=== PATIENT | male | born 1980 | race Caucasian/White ===

== ENCOUNTER 2018-10-28 06:17 | Emergency (ER) | payer OTHER, SELFPAY ==
[2018-10-28] VITALS (16 sets, daily range): BP systolic 113–154; BP diastolic 77–124; PULSE 74–134; RESP 12–28; TEMP 36.8; O2SAT 96–100; BMI 29.0
--- NOTE | 2018-10-28 06:21 | EKG12_ITS ---
Test Reason : PALPITATIONS Blood Pressure : / mmHG Vent. Rate : 144 BPM Atrial Rate : 074 BPM P-R Int : 000 ms QRS Dur : 086 ms QT Int : 308 ms P-R-T Axes : 000 024 062 degrees QTc Int : 476 ms Atrial fibrillation with rapid ventricular response Nonspecific ST and T wave abnormality Abnormal ECG Confirmed by VENUS CONN, EDISON ([id number]), web editor ARANZA POLLARD ([id number] on 10/29/2018 2:36:31 PM Referred By: JOHAN Confirmed By:EDISON DONOVAN MD
--- NOTE | 2018-10-28 06:25 | EKG12_ITS ---
Test Reason : REPEAT EKG Blood Pressure : / mmHG Vent. Rate : 094 BPM Atrial Rate : 102 BPM P-R Int : 000 ms QRS Dur : 092 ms QT Int : 342 ms P-R-T Axes : 000 012 023 degrees QTc Int : 427 ms Atrial fibrillation Abnormal ECG Confirmed by EDISON DONOVAN MD ([id number]), brands editor ARANZA POLLARD ([id number] on 10/29/2018 2:18:22 PM Referred By: SAMANTHA Confirmed By:EDISON DONOVAN MD
--- NOTE | 2018-10-28 06:33 | ED.DCSUM_ITS ---
- ER Visit Summary Date of Service: 10/28/18 Chief Complaint: Heart racing History of Present Illness: The patient is a 38 M presents to the emergency department heart racing. Patient states that he went to bed in his normal state of health. He states that he woke suddenly early this morning and felt like his heart was racing. He describes some chest tightness and dyspnea. He states that he put on his watch that is able to calculate his heart rate. He states was running anywhere from 100 to 175. He is never had anything like this before. The patient does have history of Crohn's disease but is not on any medications. He denies any history of coronary vascular disease. He does not smoke. He denies any exertional dyspnea. He denies any recent travel. He has no history of pulmonary embolus. He states that he has had a heart heart rate in the past, but is never had to seek care for it. Physical Examination: [Vital signs reviewed General: Well-nourished, well-developed Head: Normocephalic, atraumatic Eyes: Pupils equal and reactive, extraocular muscles intact Neck, supple, no lymphadenopathy Heart: Irregular tachycardic rate and rhythm Respiratory: No distress, clear bilaterally Abdomen: Soft, nontender, nondistended, no peritoneal signs Back: Nontender Extremities: Nontender, no edema, no cords Skin: Normal color no rash Neuro: Alert and oriented, no focal or lateralizing deficits Test Results: [] Emergency Department Course and Treatment: EKG was obtained on patient arrival. It does demonstrate narrow complex irregular tachycardia that I suspect is either A. fib with RVR versus atrial flutter with intermittent conduction. The patient would have areas on the monitor where he would slow and have a sinus rhythm and then speed back up. IV was established. The patient was given 20 mg of diltiazem. His heart rate did decrease into the upper 100s. He did have symptomatic improvement. Screening labs were obtained. Treatment Plan: [] Disposition: [] Impression: [] This note was generated with [email or web address] dictation software. It may contain incorrect words, spelling, and punctuation that were not noted in review of the chart prior to signing <Dominic Gomez - Last Filed: 10/28/18 06:50> - ER Visit Summary Date of Service: 10/28/18 Chief Complaint: [] Please see the note from Dr. Hutchison above, the patient remained stable here in the department his labs and x-rays were unremarkable we did speak with Dr. Birmingham cardiology who came down to see the patient, Dr. Birmingham and the patient interrogated the patient's apple watch data and determined that he was in a normal heart rate for the whole week and this likely began this morning based on that data patient confirms that, Dr. Birmingham recommend the patient given Lovenox additional dose of Cardizem and then after an hour or 2 if he had not converted to go ahead and proceed with direct-current cardioversion synchronized he did not convert he remained stable awake we discussed all the above with him risk benefits with the as well, he understood all the above and agreed and consented, he was then underwent conscious sedation protocol hyperoxygenation maintain normal vital signs and pulse ox, treated with incremental doses of Versed 2 mg propofol 60 mg, and then cardioverted with 200 synchronized joules without difficulty into a sinus rhythm with Dr. birmingham ,, post the procedure he remained in a sinus rhythm he remained awake and alert with no complaints his repeat EKG showed a sinus rhythm he was observed remained awake alert had no complaints or concerns remained in a sinus rhythm at this time will follow up with Dr. Birmingham he will be started on Eliquis 5 mg twice daily and return for change in symptoms History of Present Illness: [] Physical Examination: [] Test Results: [] Emergency Department Course and Treatment: [] Treatment Plan: [] Disposition: [] Home stable Impression: [] Sudden onset paroxysmal A. fib, conscious sedation, synchronized cardioversion to treat A. fib This note was generated with [email or web address] dictation software. It may contain incorrect words, spelling, and punctuation that were not noted in review of the chart prior to signing <Judy Norris - Last Filed: 10/28/18 10:54> ED Disposition <Dominic Gomez - Last Filed: 10/28/18 06:50> <Judy Norris - Last Filed: 10/28/18 10:54> - Plan for ED Patient: Referrals: Keri Peng MD [STAFF PHYSICIAN] -
[2018-10-28] MEDS: dilTIAZem 25 MG/5 ML Vial 20 MG IV BOLUS ×2 (06:36→08:15)
[2018-10-28 06:43] LABS: Absolute Lymphocyte Count 2.01 X10^3/ul (0.83-4.51); Absolute Neutrophil Count 3.9 X10^3/uL (2.0-7.7); Basophil# 0.04 X10^3/uL; Basophil% 0.5 % (0-1); Eosinophil# 0.33 X10^3/uL; Eosinophils% 4.2 % (0-5); Hematocrit 45.2 % (40-54); Hemoglobin 14.8 g/dl (13.0-16.5); Lymphocyte # 2.01 X10^3/ul (4.0); Lymphocyte % 25.6 % (19-41); Mean Corp Hgb Conc 32.7 g/gl (32-36); Mean Corpuscular Hgb 28.9 pg (27.0-32.0); Mean Corpuscular Volume 88.3 fL (80-94); Mean Platelet Vol. 9.8 fl (6.2-12.0); Monocyte# 1.59 X10^3/uL; Monocyte% 20.3 % (0-10); Neutrophil # 3.86 X10^3/uL (2.7-7.7); Neutrophil % 49.1 % (47-70); Platelet Count 211 K/mm3 (150-450); RBC Distribution Width CV 13.3 % (11.6-14.6); Red Blood Count 5.12 M/mm3 (4.6-6.2); White Blood Count 7.9 K/mm3 (4.4-11.0)
--- NOTE | 2018-10-28 06:45 | RAD_ITS ---
STUDY: X-RAY CHEST REASON FOR EXAM: Male, 38 years old. Palpitations TECHNIQUE: 1 view COMPARISON: None. FINDINGS: There is mild cardiomegaly with central vascular congestion. No pneumonia. No pleural effusions. Normal visualized thoracic spine. Normal visualized ribs, clavicles, and shoulders. There is no demonstrated abnormality of the visualized soft tissue structures of the upper abdomen. RAD/Chest 1 View (Portable) IMPRESSION: Moderate cardiomegaly with central vascular congestion. Electronically Signed: Juan Ramon Mena MD at 7:40 EST Tel , Service support ,
[2018-10-28 06:47] LABS: Differential Indicated SCAN CRITERIA MET; POSITIVE COUNT NO; POSITIVE DIFFERENTIAL YES; POSITIVE MORPHOLOGY NO
[2018-10-28 06:51] LABS: AST(SGOT) 18 U/L (15-37); Alanine Aminotransfer ALT/SGPT 30 U/L (16-61); Alkaline Phosphatase 96 U/L (45-117); Anion Gap 8 (5-15); BUN 17 mg/dL (7-18); Calcium,Total 8.7 mg/dL (8.5-10.1); Chloride 110 mmol/L (98-107); Creatinine, Serum 0.95 mg/dL (0.70-1.30); EST Glomerular Filtration Rate 95 mL/min (>60); Est Glom Filt Rate - Afr Amer 115 mL/min (>60); Estimated Creatinine Clearance 119.15 ml/min; Glucose 98 mg/dL (74-106); Potassium 3.5 mmol/L (3.5-5.1); Sodium Level 144 mmol/L (136-145)
[2018-10-28 06:55] LABS: Prothrombin Time (Protime)PT. 13.2 SECONDS (11.7-14.9)
[2018-10-28 06:59] LABS: Reactive Lymphocyte 1+
[2018-10-28 07:22] LABS: Thyroid Stim Hormone (TSH) 1.22 uIU/mL (0.358-3.74)
--- NOTE | 2018-10-28 08:19 | PCM.CONS.C ---
Reason for Consult Date of Consultation: 10/28/18 Reason for Consultation: Fast heartbeat History of Present Illness: The patient is a 38 year old M presents to the emergency department this morning because of heart racing. Patient states that he went to bed in his normal state of health. He states that he woke suddenly early this morning and felt like his heart was racing. He describes some chest tightness and dyspnea. He states that he put on his watch that is able to calculate his heart rate. He states was running anywhere from 100 to 175. He is never had anything like this before. The patient does have history of Crohn's disease but is not on any medications. He denies any history of coronary vascular disease. He does not smoke. He does not drink any significant caffeinated beverages he had 2 beers last night. He denies any exertional dyspnea. He denies any recent travel. He has no history of pulmonary embolus. He states that he has had a heart heart rate in the past, but is never had to seek care for it. He categorically states that around 11 PM yesterday his apple watch indicated that his heart rate was normal. The ER called me to see him because of his A. fib. Past Medical History Allergies/Adverse Reactions: Allergies amoxicillin [From Augmentin] Adverse Reaction (Verified 10/28/18 06:36) Diarrhea clavulanic acid [From Augmentin] Adverse Reaction (Verified 10/28/18 06:36) Diarrhea Home Medications: Ambulatory Orders Medication Instructions Recorded NK 10/28/18 Lives: Spouse/ Significant Other Smoking Status: Former smoker Tobacco Use: Non-smoker Alcohol: Occasional Drugs: None Review of Systems - Review of Systems General: Denies: Fever, Night Sweats, Fatigue HEENT: Denies: Vision Change Cardiovascular: Denies: Chest Discomfort, Shortness of Breath, Orthopnea, PND, Peripheral Edema, Palpitations, Lightheadedness, Dizziness, Near Syncope, Syncope Respiratory: Denies: Cough, Sputum Production, Hemoptysis Gastrointestinal: Denies: Hematemesis, Hematochezia, Melena Genitourinary: Denies: Dysuria, Hematuria Muscoloskeletal: Denies: Myalgias Skin: Denies: Rash Neurological: Denies: Dizziness Psychiatric: Denies: Anxiety Endocrine: Denies: Unexplained Weight Loss Hematologic/ Lymphatic: Denies: Anemia Subjectve: Pleasant gentleman in no apparent distress Objective: Vital Signs Temp Pulse Resp BP Pulse Ox 98.3 F 112 H 24 H 128/88 H 97 10/28/18 06:18 10/28/18 07:59 10/28/18 08:16 10/28/18 08:16 10/28/18 08:16 Oxygen Delivery Method Room Air Weight: 220 lb Body Mass Index (BMI) 29.0 General: Awake, Alert, Oriented x 3 HEENT: PERRL, EOMI, Sclera Non Icteric Neck: Supple, Good ROM, No Lymph Node Enlargement Lungs: Clear to auscultation Cardiovascular: Irregular Rhythm, Normal S1, Normal S2, No Murmurs, No Rubs, No Gallops Vascular: No Carotid Bruits, Normal Femoral Pulses, Normal Radial Pulses, Normal Dorsalis Pedal Pulse, Normal Posterior Tibial Pulses Abdomen: Bowel Sounds Present, Soft, Non Tender, No HSM, No Organomegaly Extremities: No Cyanosis, No Clubbing, No edema Musculoskeletal: No Erythema Skin: No Rashes Lymphatic: No Lymph Node Enlargement Neurological: No Focal Motor or Sensory Deficit Psych/Mental Status: Appropriate 10/28/18 06:25: WBC 7.9, RBC 5.12, Hgb 14.8, Hct 45.2, MCV 88.3, MCH 28.9, MCHC 32.7, RDW 13.3, RDW Differential 43.0, Plt Count 211, MPV 9.8, Immature Gran % (Auto) 0.300, Neut % (Auto) 49.1, Lymph % (Auto) 25.6, [place] % (Auto) 20.3 H, Eos % (Auto) 4.2, Baso % (Auto) 0.5, Absolute Neuts (auto) 3.9, Total Counted Not Reportable 10/28/18 06:25: PT 13.2, INR 1.0 10/28/18 06:25: Sodium 144, Potassium 3.5, Chloride 110 H, Carbon Dioxide 26.0, Anion Gap 8, BUN 17, Creatinine 0.95, Est GFR (MDRD) Af Amer 115, Est GFR (MDRD) Non-Af 95, BUN/Creatinine Ratio 18.0, Glucose 98, Calcium 8.7, Total Bilirubin 0.40, Troponin I < 0.015 Rhythm: EKG: Atrial fibrillation with a rapid ventricular response rate of 144 bpm Assessment/Plan 1. New onset atrial fibrillation Patient presents with new onset atrial fibrillation which appears to be less than 24 hours old. The exact precipitating etiology is not entirely clear. My recommendation would be to control his heart rate with intravenous Cardizem Subcu Lovenox 1 mg/kg If in 2 hours the patient has not converted back to sinus rhythm would recommend DC cardioversion and then follow-up as an outpatient with a [facility]. I have explained the above to the patient and his as well as the ER physician and they understand and agreed to proceed. Thank you for allowing me to participate in the care of your patient. Please don't hesitate to call if any issues arise
--- NOTE | 2018-10-28 08:24 | CON.PCM_ITS ---
Reason for Consult Date of Consultation: 10/28/18 Reason for Consultation: Fast heartbeat History of Present Illness: The patient is a 38 year old M presents to the emergency department this morning because of heart racing. Patient states that he went to bed in his normal state of health. He states that he woke suddenly early this morning and felt like his heart was racing. He describes some chest tightness and dyspnea. He states that he put on his watch that is able to calculate his heart rate. He states was running anywhere from 100 to 175. He is never had anything like this before. The patient does have history of Crohn's disease but is not on any medications. He denies any history of coronary vascular disease. He does not smoke. He does not drink any significant caffeinated beverages he had 2 beers last night. He denies any exertional dyspnea. He denies any recent travel. He has no history of pulmonary embolus. He states that he has had a heart heart rate in the past, but is never had to seek care for it. He categorically states that around 11 PM yesterday his apple watch indicated that his heart rate was normal. The ER called me to see him because of his A. fib. Past Medical History Allergies/Adverse Reactions: Allergies amoxicillin [From Augmentin] Adverse Reaction (Verified 10/28/18 06:36) Diarrhea clavulanic acid [From Augmentin] Adverse Reaction (Verified 10/28/18 06:36) Diarrhea Home Medications: Ambulatory Orders Medication Instructions Recorded NK 10/28/18 Lives: Spouse/ Significant Other Smoking Status: Former smoker Tobacco Use: Non-smoker Alcohol: Occasional Drugs: None Review of Systems - Review of Systems General: Denies: Fever, Night Sweats, Fatigue HEENT: Denies: Vision Change Cardiovascular: Denies: Chest Discomfort, Shortness of Breath, Orthopnea, PND, Peripheral Edema, Palpitations, Lightheadedness, Dizziness, Near Syncope, Syncope Respiratory: Denies: Cough, Sputum Production, Hemoptysis Gastrointestinal: Denies: Hematemesis, Hematochezia, Melena Genitourinary: Denies: Dysuria, Hematuria Muscoloskeletal: Denies: Myalgias Skin: Denies: Rash Neurological: Denies: Dizziness Psychiatric: Denies: Anxiety Endocrine: Denies: Unexplained Weight Loss Hematologic/ Lymphatic: Denies: Anemia Subjectve: Pleasant gentleman in no apparent distress Objective: Vital Signs Temp Pulse Resp BP Pulse Ox 98.3 F 112 H 24 H 128/88 H 97 10/28/18 06:18 10/28/18 07:59 10/28/18 08:16 10/28/18 08:16 10/28/18 08:16 Oxygen Delivery Method Room Air Weight: 220 lb Body Mass Index (BMI) 29.0 General: Awake, Alert, Oriented x 3 HEENT: PERRL, EOMI, Sclera Non Icteric Neck: Supple, Good ROM, No Lymph Node Enlargement Lungs: Clear to auscultation Cardiovascular: Irregular Rhythm, Normal S1, Normal S2, No Murmurs, No Rubs, No Gallops Vascular: No Carotid Bruits, Normal Femoral Pulses, Normal Radial Pulses, Normal Dorsalis Pedal Pulse, Normal Posterior Tibial Pulses Abdomen: Bowel Sounds Present, Soft, Non Tender, No HSM, No Organomegaly Extremities: No Cyanosis, No Clubbing, No edema Musculoskeletal: No Erythema Skin: No Rashes Lymphatic: No Lymph Node Enlargement Neurological: No Focal Motor or Sensory Deficit Psych/Mental Status: Appropriate 10/28/18 06:25: WBC 7.9, RBC 5.12, Hgb 14.8, Hct 45.2, MCV 88.3, MCH 28.9, MCHC 32.7, RDW 13.3, RDW Differential 43.0, Plt Count 211, MPV 9.8, Immature Gran % (Auto) 0.300, Neut % (Auto) 49.1, Lymph % (Auto) 25.6, [place] % (Auto) 20.3 H, Eos % (Auto) 4.2, Baso % (Auto) 0.5, Absolute Neuts (auto) 3.9, Total Counted Not Reportable 10/28/18 06:25: PT 13.2, INR 1.0 10/28/18 06:25: Sodium 144, Potassium 3.5, Chloride 110 H, Carbon Dioxide 26.0, Anion Gap 8, BUN 17, Creatinine 0.95, Est GFR (MDRD) Af Amer 115, Est GFR (MDRD) Non-Af 95, BUN/Creatinine Ratio 18.0, Glucose 98, Calcium 8.7, Total Bilirubin 0.40, Troponin I < 0.015 Rhythm: EKG: Atrial fibrillation with a rapid ventricular response rate of 144 bpm Assessment/Plan 1. New onset atrial fibrillation * Patient presents with new onset atrial fibrillation which appears to be less than 24 hours old. The exact precipitating etiology is not entirely clear. * My recommendation would be to control his heart rate with intravenous Cardizem * Subcu Lovenox 1 mg/kg * If in 2 hours the patient has not converted back to sinus rhythm would recommend DC cardioversion and then follow-up as an outpatient with a month of Soraida. * I have explained the above to the patient and his as well as the ER physician and they understand and agreed to proceed. * * Thank you for allowing me to participate in the care of your patient. Please don't hesitate to call if any issues arise
[2018-10-28] MEDS: Enoxaparin 100 MG/ML Syringe SC (08:30)
--- NOTE | 2018-10-28 10:29 | EKG12_ITS ---
Test Reason : REPEAT EKG Blood Pressure : / mmHG Vent. Rate : 084 BPM Atrial Rate : 084 BPM P-R Int : 166 ms QRS Dur : 086 ms QT Int : 364 ms P-R-T Axes : 046 008 035 degrees QTc Int : 430 ms Normal sinus rhythm Normal ECG Confirmed by EDISON DONOVAN MD ([id number]), magazine editor ARANZA POLLARD ([id number]) on 10/29/2018 2:18:55 PM Referred By: SAMANTHA Confirmed By:EDISON DONOVAN MD
--- NOTE | 2018-10-28 10:33 | PN_ITS ---
Progress Note Procedure note. DC cardioversion: Patient presented with a less than 24-hour history of atrial fibrillation. His electrolytes were noted to be normal and he had no other history noted. The patient was administered 1 mg/kg of subcutaneous Lovenox as well as intravenous Cardizem with no evidence of conversion to sinus rhythm. The decision was made to proceed with DC cardioversion. After informed consent was obtained anterior- posterior pads were applied. With the assistance of the ER physician television news photographer 2 mg of intravenous Versed was administered as well as 60 mg of intravenous propofol. 200 J of synchronized biphasic energy were applied with prompt reversal to sinus rhythm. Patient tolerated the procedure well. Conclusion: Successful DC cardioversion to sinus rhythm. Plan is to continue patient with 5 mg of Eliquis twice daily for 1 month. Follow-up in my office in 2-4 weeks.
--- NOTE | 2018-10-28 10:54 | ED.DEP ---
ED Disposition - Plan for ED Patient: Prescriptions: Apixaban [Eliquis] 5 mg PO BID #60 tab Referrals: Keri Peng MD [STAFF PHYSICIAN] - Laz Fulton MD [STAFF PHYSICIAN] -
== END 2018-10-28 11:33 | disposition home or self-care (01) ==
PROVIDERS: Emergency Provider Emergency Medicine; Family Provider Student in an Organized Health Care Education/Training Program; PCP Student in an Organized Health Care Education/Training Program
DX: I48.0 Paroxysmal atrial fibrillation (principal); K50.90 Crohn's disease, unspecified, without complications; Z87.891 Personal history of nicotine dependence
CPT/HCPCS: 71045; 80053; 84443; 84484; 85025; 85610; 93005; 96361; 96365; 96366; 96372; 96375; 96376; 99285; J7030; J7040; A4216

== ENCOUNTER → 2018-11-30 13:58 | Outpatient (CLI) | payer OTHER, SELFPAY ==
[2018-11-09 11:04] VITALS: BMI 30.4
--- NOTE | 2018-11-30 13:59 | ECHOD_ITS ---
Reason For Study: AFIB Procedure This was a 2D Doppler, Color Flow transthoracic echocardiogram. Exam performed in department. Left Ventricle Normal LV size. Left ventricular systolic function is normal. The estimated ejection fraction is 60 %. Normal diastology for age. No regional wall motion abnormalities noted. Right Ventricle Normal RV size. Normal systolic function. Atria Normal left atrium. Normal right atrium. Mitral Valve Normal mitral valve. Tricuspid Valve Normal tricuspid valve. Aortic Valve Normal aortic valve. Trisinus/trileaflet aortic valve. Pulmonic Valve Normal pulmonic valve. Great Vessels Normal aortic root. The pulmonary artery is normal size. Normal inferior vena cava. Pericardium/Pleural No pericardial effusion. MMode/2D Measurements & Calculations LVIDd: 5.2 cm IVSd: 0.89 cm Ao root diam: 3.1 cm LVIDs: 3.5 cm LVPWd: 1.0 cm RVDd: 3.7 cm FS: 31.9 % LAV(MOD-bp): 67.1 ml LA dimension(2D): 4.3 cm RA A4 area: 15.5 cm2 LAV(MOD-bp) Indexed: 29.4 ml/m2 LAV(MOD-sp2): 55.8 ml LAV(MOD-sp4): 70.0 ml Time Measurements MV dec time: 0.22 sec Doppler Measurements & Calculations MV E max abdoul: 88.0 cm/sec Lat Peak E' Abdoul: 21.9 cm/sec Med Peak E' Abdoul: 11.2 cm/sec MV A max abdoul: 40.1 cm/sec E/E' lat: 4.0 E/E' med: 7.8 MV E/A: 2.2 Ao V2 max: 106.2 cm/sec LV V1 max: 102.7 cm/sec TR max abdoul: 185.2 cm/sec Ao max P.5 mmHg LV V1 max P.2 mmHg TR max P.7 mmHg Interpretation Summary Normal LV size. Left ventricular systolic function is normal. The estimated ejection fraction is 60 %. Structurally normal valves. Ordering Physician: Laz Fulton Referring Physician: MYA GOMES Performed By: Madelyn Marshall, RDCS, RVT
== END ==
PROVIDERS: Family Provider Student in an Organized Health Care Education/Training Program; PCP Student in an Organized Health Care Education/Training Program; Referring Provider Internal Medicine Cardiovascular Disease; Visit Provider Internal Medicine Cardiovascular Disease
DX: I48.91 Unspecified atrial fibrillation (principal)
CPT/HCPCS: 93306

== ENCOUNTER 2019-05-23 09:30 | Emergency (ER) | payer OTHER, SELFPAY ==
[2018-11-09 11:04] VITALS: BMI 30.4
[2019-05-23] VITALS (7 sets, daily range): BP systolic 123–179; BP diastolic 58–142; PULSE 70–179; RESP 13–30; TEMP 37; O2SAT 96–100; BMI 30.9
--- NOTE | 2019-05-23 09:37 | EKG12_ITS ---
Test Reason : INC HR Blood Pressure : / mmHG Vent. Rate : 157 BPM Atrial Rate : 153 BPM P-R Int : 000 ms QRS Dur : 080 ms QT Int : 286 ms P-R-T Axes : 000 017 042 degrees QTc Int : 462 ms Atrial fibrillation with rapid ventricular response Abnormal ECG Confirmed by VENUS CONN, DEISON ([id number]), avid editor ISRAEL CONN ([id number]) on 05/27/2019 3:35:07 PM Referred By: DC Confirmed By:EDISON DONOVAN MD
--- NOTE | 2019-05-23 09:43 | ED.DCSUM_ITS ---
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 He woke up from sleep around 5 AM this morning and felt an irregular heartbeat. He had similar symptoms in the past. They started in his sleep. He was treated with medication, multiple doses. Medications failed, and he required synchronized cardioversion. Afterwards, he was on anticoagulation for about a month. He has been doing well since. He said his palpitations woke him up this morning around 5 AM. No other associated symptoms. He is not currently on rate control or anticoagulation. No history of coronary disease. He is unsure what triggers his atrial fibrillation. Physical Examination: Tachycardia at 155. Otherwise vitals normal. Good mentation. Normal skin color. Heart is irregularly irregular. Lungs are clear. Test Results: EKG shows atrial fibrillation with RVR at a rate of 157. Laboratory studies are pending. Chest x-ray is pending. Emergency Department Course and Treatment: Patient was placed on a monitor. Per Dr. Fulton. He will be pretreated with Lovenox. We will then sedate and perform synchronized cardioversion. Patient gave consent for sedation and cardioversion. Will sedate with fentanyl and Versed. Synchronized cardioversion performed with 125 J. This was successful. Subsequent sinus rhythm. Repeat EKG showed sinus rhythm, normal rate, no sign of ischemia or infarction pattern. Patient will be discharged on a course of Xarelto 20 mg for 30 days as requested by his gun perforator. He will follow-up as an outpatient. Return for any new or worsening issues. Treatment Plan: As above Disposition: Discharge Impression: 1. Atrial fibrillation with RVR 2. Synchronized cardioversion This note was generated with [employer] software. It may contain incorrect words, spelling, and punctuation that were not noted in review of the chart prior to signing ED Disposition - Plan for ED Patient: Instructions: Atrial Fibrillation Prescriptions: Rivaroxaban [Xarelto] 20 mg PO DAILY 30 Days #30 tab Prescription Printed Referrals: Laz Fulton MD [STAFF PHYSICIAN] -
--- NOTE | 2019-05-23 09:46 | RAD_ITS ---
STUDY: X-RAY CHEST REASON FOR EXAM: Male, 38 years old. Chest pain. TECHNIQUE: Single AP portable view of the chest. COMPARISON: Comparison is made with prior examination of October 28, 2018. FINDINGS: EKG electrodes are seen. The lungs are clear and expanded. There is no demonstrated pleural abnormality. Normal size heart. Normal mediastinum and romina. Normal visualized pulmonary arteries. Normal visualized aortic arch and descending thoracic aorta. Normal visualized thoracic spine. Normal visualized ribs, clavicles, and shoulders. There is no demonstrated abnormality of the visualized soft tissue structures of the upper abdomen. RAD/Chest 1 View (Portable) IMPRESSION: Normal x-ray examination of the chest. Electronically Signed: Gordon Ramirez, at 10:08 EDT , Service support ,
[2019-05-23] MEDS: Enoxaparin 100 MG/ML Syringe SC (09:48)
[2019-05-23 09:51] LABS: Absolute Lymphocyte Count 1.75 X10^3/uL (0.83-4.51); Absolute Neutrophil Count 4.7 X10^3/uL (2.0-7.7); Basophil# 0.06 X10^3/uL; Basophil% 0.8 % (0-1); Eosinophil# 0.23 X10^3/uL; Eosinophils% 2.9 % (0-5); Hematocrit 47.2 % (40-54); Hemoglobin 15.8 g/dL (13.0-16.5); Lymphocyte # 1.75 X10^3/ul (4.0); Lymphocyte % 22.3 % (19-41); Mean Corp Hgb Conc 33.5 g/dL (32-36); Mean Corpuscular Hgb 29.1 pg (27.0-32.0); Mean Corpuscular Volume 86.9 fL (80-94); Mean Platelet Vol. 9.7 fl (6.2-12.0); Monocyte# 0.97 X10^3/uL; Monocyte% 12.4 % (0-10); NRBC Flagged by Analyzer 0 % (0-5); Neutrophil # 4.73 X10^3/uL (2.7-7.7); Neutrophil % 60.2 % (47-70); Platelet Count 250 K/mm3 (150-450); RBC Distribution Width CV 12.3 % (11.6-14.6); RBC Distribution Width SD 39.1 fl (35.1-43.9); Red Blood Count 5.43 M/mm3 (4.6-6.2); White Blood Count 7.9 K/mm3 (4.4-11.0)
[2019-05-23 10:03] LABS: International Normalized Ratio 1.1; Prothrombin Time (Protime)PT. 13.7 SECONDS (11.7-14.9)
[2019-05-23 10:04] LABS: Partial Thromboplast Time 29.2 Seconds (24.1-36.2)
[2019-05-23 11:00] LABS: Anion Gap 3 (5-15); BUN 15 mg/dL (7-18); BUN/Creat Ratio 14.7 RATIO (10-20); Calcium,Total 9.4 mg/dL (8.5-10.1); Chloride 108 mmol/L (98-107); Creatinine, Serum 1.02 mg/dL (0.70-1.30); EST Glomerular Filtration Rate 87 mL/min (>60); Est Glom Filt Rate - Afr Amer 105 mL/min (>60); Estimated Creatinine Clearance 110.97 ml/min; Glucose 89 mg/dL (74-106); Potassium 4.3 mmol/L (3.5-5.1); Sodium Level 141 mmol/L (136-145); Thyroid Stim Hormone (TSH) 1.55 uIU/mL (0.358-3.74)
[2019-05-23] MEDS: fentaNYL 100 MCG/2 ML Ampul IV (11:15)
[2019-05-23] MEDS: Midazolam 2 MG/2 ML Syringe IV ×2 (11:17→11:19)
--- NOTE | 2019-05-23 11:23 | EKG12_ITS ---
Test Reason : REPEAT Blood Pressure : / mmHG Vent. Rate : 079 BPM Atrial Rate : 079 BPM P-R Int : 156 ms QRS Dur : 082 ms QT Int : 360 ms P-R-T Axes : 047 008 037 degrees QTc Int : 412 ms Normal sinus rhythm Normal ECG Confirmed by EDISON DONOVAN MD ([id number]), copy editor ISRAEL CONN ([id number]) on 05/27/2019 3:35:24 PM Referred By: DC Confirmed By:EDISON DONOVAN MD
--- NOTE | 2019-05-23 11:46 | ED.DEP ---
ED Disposition - Plan for ED Patient: Instructions: Atrial Fibrillation Prescriptions: Rivaroxaban [Xarelto] 20 mg PO DAILY 30 Days #30 tab Prescription Printed Referrals: Laz Fulton MD [STAFF PHYSICIAN] -
== END 2019-05-23 12:37 | disposition home or self-care (01) ==
LOC: ED 10:15
PROVIDERS: Emergency Provider Emergency Medicine; Family Provider Student in an Organized Health Care Education/Training Program; PCP Student in an Organized Health Care Education/Training Program
DX: I48.91 Unspecified atrial fibrillation (principal); K50.90 Crohn's disease, unspecified, without complications; Z87.891 Personal history of nicotine dependence; Z79.899 Other long term (current) drug therapy
CPT/HCPCS: 71045; 80048; 84443; 84484; 85025; 85610; 85730; 92960; 93005; 96372; 96374; 96375; 99152; 99153; 99284; J7030; A4216

== ENCOUNTER → 2019-07-10 | Outpatient (CLI) | payer OTHER, SELFPAY ==
[2019-06-19 16:32] VITALS: BMI 30.9
== END | disposition home or self-care (01) ==
LOC: SL 20:10
PROVIDERS: Family Provider Student in an Organized Health Care Education/Training Program; PCP Student in an Organized Health Care Education/Training Program; Referring Provider Internal Medicine Cardiovascular Disease; Visit Provider Internal Medicine Cardiovascular Disease
DX: G47.10 Hypersomnia, unspecified (principal); I48.0 Paroxysmal atrial fibrillation
CPT/HCPCS: 95810

== ENCOUNTER 2019-08-27 07:44 | Emergency (ER) | payer OTHER, SELFPAY ==
[2019-07-30 07:37] VITALS: BMI 32.1
[2019-08-27] VITALS (9 sets, daily range): BP systolic 110–135; BP diastolic 80–97; PULSE 83–156; RESP 16–18; TEMP 36.6; O2SAT 95–100; BMI 32.9
--- NOTE | 2019-08-27 07:53 | EKG12_ITS ---
Test Reason : REPEAT EKG Blood Pressure : / mmHG Vent. Rate : 081 BPM Atrial Rate : 081 BPM P-R Int : 160 ms QRS Dur : 086 ms QT Int : 360 ms P-R-T Axes : 035 000 027 degrees QTc Int : 418 ms Normal sinus rhythm Normal ECG Confirmed by SATISH GRIFFIN ([id number]), web content editor ISRAEL CONN ([id number]) on 08/29/2019 10:57:36 AM Referred By: JASPER Confirmed By:SATISH GRIFFIN
[2019-08-27 07:59] LABS: Absolute Neutrophil Count 6.1 X10^3/uL (2.0-7.7); Basophil# 0.08 X10^3/uL; Basophil% 0.8 % (0-1); Eosinophil# 0.31 X10^3/uL; Eosinophils% 3.3 % (0-5); Hematocrit 47.8 % (40-54); Hemoglobin 15.7 g/dL (13.0-16.5); Mean Corp Hgb Conc 32.8 g/dL (32-36); Mean Corpuscular Hgb 28.7 pg (27.0-32.0); Mean Corpuscular Volume 87.4 fL (80-94); Mean Platelet Vol. 9.2 fl (6.2-12.0); Monocyte# 1.23 X10^3/uL; Monocyte% 13.1 % (0-10); NRBC Flagged by Analyzer 0 % (0-5); Neutrophil # 6.13 X10^3/uL (2.7-7.7); Neutrophil % 65.1 % (47-70); Platelet Count 260 K/mm3 (150-450); RBC Distribution Width CV 12.3 % (11.6-14.6); RBC Distribution Width SD 39.2 fl (35.1-43.9); Red Blood Count 5.47 M/mm3 (4.6-6.2); White Blood Count 9.4 K/mm3 (4.4-11.0)
[2019-08-27] MEDS: dilTIAZem 25 MG/5 ML Vial 20 MG IV BOLUS (07:59)
--- NOTE | 2019-08-27 08:04 | ED.DCSUM_ITS ---
- ER Visit Summary Date of Service: 08/27/19 Chief Complaint: [Palpitations] History of Present Illness: The patient is a 39 M [presents the emergency department palpitations that woke him up from sleep around 3:40 AM. Patient has history of paroxysmal atrial fibrillation. Patient has had 2 cardioversions this year 1 in October and one in April for same complaint. He is currently on no medications for rate control and he is not anticoagulated. He denies any chest pain. Describes just minimal dyspnea associated with it. He denies syncopal episodes or diaphoresis. Patient is scheduled to see EP inspector repairer sandstone in 3 days. Patient denies any illicit drug use. Patient drinks alcohol occasionally. Denies taking any new medications. Has had some sinus congestion recently but no cough and no fevers.] Physical Examination: [HEENT-PERRLA, EOMI. Cranial nerves II through XII grossly intact. TMs clear. Mucous membranes moist. No adenopathy. Cardiovascular-irregularly irregular with heart rate in the 150s. No murmurs auscultated. Lungs-clear to auscultation, chest wall stable without crepitus or subcu emphysema Abdomen-normoactive bowel sounds, soft, nontender, no rebound or rigidity, no peritoneal signs. Extremities-intact ?4, normal range of motion, normal pulses, atraumatic] Test Results: [EKG obtained arrival showed a atrial fibrillation with rapid ventricular response with a rate of 160 bpm. CBC with differential is normal. Chemistries unremarkable. Troponin is less than 0.15.] Emergency Department Course and Treatment: [On arrival patient placed on surveillance monitor had an IV line established. Patient was given Cardizem 20 mg IV bolus and that slowed him down into the 110s. Case was discussed with cardiology Dr. Laz Fulton who asked that we give patient 1 dose of Lovenox and perform synchronized cardioversion. Patient was given 120 mg Lovenox subcu as well as propofol 130 mg IV with good sedation obtained. Using 200 J patient was synchronized cardioverted into a sinus rhythm. Repeat EKG shows a normal sinus rhythm with no acute ST segment changes.] Treatment Plan: [Patient to keep his appointment with EP inspector repairer sandstone in 3 days] Disposition: [Discharged home in stable condition] Impression: [Atrial fibrillation with rapid ventricular response Cardioversion performed by ED physician Procedural sedation by ED physician] This note was generated with Dragon dictation software. It may contain incorrect words, spelling, and punctuation that were not noted in review of the chart prior to signing ED Disposition - Plan for ED Patient: Referrals: Salazar Kamara [Primary Care Provider] -
[2019-08-27] MEDS: 0.9% Normal Saline 1,000 ML 150 ML IV (08:10)
[2019-08-27] MEDS: Enoxaparin 120 MG/0.8 ML Syringe SC (08:39)
[2019-08-27 08:40] LABS: Anion Gap 3 (5-15); BUN 15 mg/dL (7-18); Calcium,Total 9.1 mg/dL (8.5-10.1); Chloride 109 mmol/L (98-107); Creatinine, Serum 1.07 mg/dL (0.70-1.30); EST Glomerular Filtration Rate 82 mL/min (>60); Est Glom Filt Rate - Afr Amer 99 mL/min (>60); Estimated Creatinine Clearance 104.75 ml/min; Glucose 100 mg/dL (74-106); Potassium 4.5 mmol/L (3.5-5.1); Sodium Level 141 mmol/L (136-145)
[2019-08-27] MEDS: Propofol 200 MG/20 ML Vial IV BOLUS (08:51)
--- NOTE | 2019-08-27 08:54 | DCINST.ED_ITS ---
ED Disposition - Plan for ED Patient: Instructions: Atrial Fibrillation Referrals: Salazar Kamara [Primary Care Provider] - Additional Instructions: See your EP business management manager in 3 days
--- NOTE | 2019-08-27 09:00 | EKG12_ITS ---
Test Reason : DYSRHYTMIA Blood Pressure : / mmHG Vent. Rate : 168 BPM Atrial Rate : 159 BPM P-R Int : 000 ms QRS Dur : 076 ms QT Int : 284 ms P-R-T Axes : 000 012 029 degrees QTc Int : 474 ms Atrial Flutter 2:1 conduction Abnormal ECG Confirmed by SATISH GRIFFIN ([id number]), magazine editor ISRAEL CONN ([id number]) on 08/29/2019 10:42:28 AM Referred By: RICKY Confirmed By:SATISH GRIFFIN
== END 2019-08-27 09:11 | disposition home or self-care (01) ==
LOC: ED 08:03
PROVIDERS: Emergency Provider Emergency Medicine; Family Provider Student in an Organized Health Care Education/Training Program; PCP Student in an Organized Health Care Education/Training Program
DX: I48.0 Paroxysmal atrial fibrillation (principal); R09.81 Nasal congestion; K50.90 Crohn's disease, unspecified, without complications; G47.33 Obstructive sleep apnea (adult) (pediatric); Z79.899 Other long term (current) drug therapy
CPT/HCPCS: 80048; 84484; 85025; 92960; 93005; 96361; 96372; 96374; 96375; 99285; J7030; A4216

== ENCOUNTER → 2022-06-02 | Outpatient (CLI) | payer OTHER, SELFPAY | END | disposition home or self-care (01) | LOC: SL 13:21 | PROVIDERS: PCP Student in an Organized Health Care Education/Training Program; Referring Provider Internal Medicine Critical Care Medicine; Visit Provider Internal Medicine Critical Care Medicine | DX: G47.33 Obstructive sleep apnea (adult) (pediatric) (principal); I48.0 Paroxysmal atrial fibrillation | CPT/HCPCS: 95806 ==